=== PATIENT | female | born 1990 | race African-American/Black ===

== ENCOUNTER 2021-12-21 14:35 | Outpatient (CLI) | payer BC, SELFPAY ==
[2021-12-25 04:52] LABS: DHEAS 458 ug/dL (99-340)
[2021-12-25 11:46] LABS: Prolactin 13.3 ng/mL (2.8-29.2)
[2021-12-27 13:23] LABS: 17-Hydroxyprogesterone HPLC 68.41 ng/dL (<=206.00)
[2021-12-30 14:25] LABS: Sex Hormone Binding Globulin 37 nmol/L (25-122); Testosterone Bioavailable 17.3 ng/dL (2.2-20.6); Testosterone, Free LC-MS/MS 5.4 pg/mL (0.8-7.4); Testosterone, LC-MS/MS 37 ng/dL (9-55)
== END 2021-12-21 14:36 | disposition home or self-care (01) ==
PROVIDERS: PCP Physician Assistant Medical; Visit Provider Registered Nurse
DX: L68.0 Hirsutism (principal); N91.2 Amenorrhea, unspecified; L65.9 Nonscarring hair loss, unspecified; L70.9 Acne, unspecified
CPT/HCPCS: 82627; 83498; 84146; 84270; 84402; 84403; 84443

== ENCOUNTER 2022-01-25 14:28 | Outpatient (CLI) | payer BC, SELFPAY ==
[2022-01-25 17:23] LABS: Chloride* 106 mmol/L (96-114); Potassium* 4.1 mmol/L (3.6-5.1); Sodium* 140 mmol/L (135-149)
[2022-01-25 17:26] LABS: Carbon Dioxide* 26 mmol/L (20-32); Cholesterol* 215 mg/dL (90-199); Estimated Glomerular Filt Rate 78 ml/min; HDL Cholesterol* 94 mg/dL (>=50); LDL Cholesterol Calculated 107 mg/dL (<100); Triglycerides* 70 mg/dL (40-149)
== END 2022-01-25 14:29 | disposition home or self-care (01) ==
PROVIDERS: PCP Physician Assistant Medical; Visit Provider Registered Nurse
DX: E28.2 Polycystic ovarian syndrome (principal); Z76.89 Persons encountering health services in other specified circumstances
CPT/HCPCS: 80051; 80061; 82565

== ENCOUNTER 2023-11-11 17:39 | Outpatient (CLI) | payer BC, SELFPAY | END 2023-11-11 17:40 | disposition home or self-care (01) | LOC: NFLDREF 17:40 | PROVIDERS: PCP Physician Assistant Medical; Visit Provider Advanced Practice Midwife | DX: R30.0 Dysuria (principal) | CPT/HCPCS: 87086 ==

== ENCOUNTER 2024-01-07 10:02 | Outpatient (CLI) | payer BC, SELFPAY | END 2024-01-07 10:03 | disposition home or self-care (01) | LOC: NFLDREF 01-08 18:59 | PROVIDERS: PCP Physician Assistant Medical; Referring Provider Physician Assistant Medical; Visit Provider Physician Assistant Medical | DX: F32.A Depression, unspecified (principal); F90.9 Attention-deficit hyperactivity disorder, unspecified type; F41.9 Anxiety disorder, unspecified; L70.9 Acne, unspecified; L68.0 Hirsutism; G47.9 Sleep disorder, unspecified; Z13.6 Encounter for screening for cardiovascular disorders; Z13.29 Encounter for screening for other suspected endocrine disorder; Z13.1 Encounter for screening for diabetes mellitus; Z13.0 Encounter for screening for diseases of the blood and blood-forming organs and certain disorders involving the immune mechanism | CPT/HCPCS: 80061; 82947; 84443 ==

== ENCOUNTER 2024-04-20 09:14 | Outpatient (CLI) | payer BC, SELFPAY | END 2024-04-20 09:15 | disposition home or self-care (01) | LOC: MRI 09:16 | PROVIDERS: PCP Physician Assistant Medical; Visit Provider Physician Assistant Medical | DX: R51.9 Headache, unspecified (principal); J32.0 Chronic maxillary sinusitis; H21.562 Pupillary abnormality, left eye | CPT/HCPCS: 70553; A9575 ==